=== PATIENT | male | born 1955 | race Hispanic/Latino ===

== ENCOUNTER 2022-09-24 15:34 | Inpatient (IN) | payer OTHER, BC ==
[~2022-09-24 15:34] MED LIST: Iopamidol-370 76% 500 ML 1 ML ONE
[2022-09-24] MEDS ORDERED: Boostrix 0.5 ML (Tdap) VIAL (>/=7 yrs of age) ONE (15:41)
[2022-09-24 16:04] LABS: Actual Bicarbonate (HCO3v) 21 mEq/L (22-28); Base Excess -0.9 mEq/L (-2.0 to +3.0); Calcium, Ionized (venous) 0.97 mmol/L (1.16-1.32); Chloride (VBG) 103 mmol/L (98-106); Hemoglobin (Hb) 16.3 g/dL (12.6-17.4); Potassium (VBG) 3.81 mmol/L (3.70-5.30); Sodium 132.4 mmol/L (133-146)
[2022-09-24 16:12] LABS: #Eosinphils 0.1 thou/uL (0.0-0.7); #Lymphocytes 1.5 thou/uL (1.20-3.40); #Monocytes 0.7 thou/uL (0.11-0.59); %Basophils 0.3 % (0.0-1.0); %Lymphocytes 14.6 % (21.0-51.0); %Monocytes 7.1 % (0.0-10.0); %Neutrophils 76.9 % (42.0-75.0); Hemoglobin 15.4 g/dL (14.0-18.0); Mean Corpuscular HGB CONC 34.2 g/dL (32.0-36.0); Mean Corpuscular Hemoglobin 31.8 pg (27.0-31.0); Mean Corpuscular Volume 93.1 fl (78.0-98.0); Mean Platelet Volume 7.1 fL (7.4-10.4); Platelet Count 251 10x3/uL (130-400); RBC Distribution Width 11.6 % (11.5-14.5); Red Blood Cell (RBC) Count 4.83 mill/uL (4.70-6.10); White Blood Cell (WBC) Count 10.4 10x3/uL (4.8-10.8)
[2022-09-24 16:21] LABS: INR-International Normal Ratio 0.9; PTT 24.2 sec (22.9-36.1); Prothrombin Time 12.9 sec (12.0-14.7)
[2022-09-24 16:32] LABS: Anion Gap 14 mmol/L (10-20); BUN (Urea Nitrogen) 13 mg/dL (8.4-25.7); Calc. Creatinine Clearance 0 mL/min (70-130); Carbon Dioxide 23 mmol/L (23-31); Chloride 102 mmol/L (98-107); Potassium 3.8 mmol/L (3.5-5.1); Sodium 135 mmol/L (136-145)
[2022-09-24 16:33] LABS: ALT (SGPT) 37 U/L (8-55); AST (SGOT) 25 U/L (5-34); Albumin 4.2 g/dL (3.4-4.8); Alkaline Phosphatase 101 U/L (40-110); Bilirubin, Total 0.6 mg/dL (0.2-1.2); Calcium 9.3 mg/dL (7.8-10.44); Estimated GFR 75; Globulin 2.7 g/dL (2.4-3.5); Glucose 193 mg/dL (80-115); Lipase 44 U/L (8-78); Protein, Total 6.9 g/dL (5.8-8.1)
[2022-09-24] MEDS ORDERED: Dextrose 50% Abboject 50 ML SYRINGE SLOW IVP PRN (18:40)
[2022-09-24] MEDS ORDERED: Ipratropium/Albuterol 3 ML NEB NEB PRN (18:40)
[2022-09-24] MEDS ORDERED: Morphine 2 MG/ML VIAL SLOW IVP PRN (18:40)
[2022-09-24] MEDS ORDERED: Dextrose 5% in Water 1,000 ML IV PRN (18:40)
[2022-09-24] MEDS ORDERED: Ondansetron PF 4 MG/2 ML Vial IVP PRN (18:40)
[2022-09-24] MEDS ORDERED: hydrALAZINE 20 MG/ML VIAL SLOW IVP PRN (18:55)
[2022-09-24 19:11] LABS: Lactic Acid 2.7 mmol/L (0.5-2.2)
[2022-09-24] MEDS ORDERED: Fentanyl 100 MCG/2 ML VIAL ONE (19:42)
[2022-09-24] MEDS: Sodium Chloride 0.9% 1,000 ML IV SCH (23:51)
[2022-09-24] MEDS: Acetaminophen 500 MG TAB PO SCH (23:51)
[2022-09-25] MEDS: Famotidine/PF 20 mg/2ml Vial SLOW IVP SCH ×3 (00:03→20:02)
[2022-09-25] MEDS: Acetaminophen 500 MG TAB PO SCH ×3 (01:25→13:53)
[2022-09-25 03:58] VITALS: BMI 24.6
[2022-09-25] MEDS: Sodium Chloride 0.9% 1,000 ML IV SCH ×2 (05:56→08:57)
[2022-09-25] MEDS ORDERED: Acetaminophen/Codeine 30-300mg Tablet PO PRN (14:56)
[2022-09-25] MEDS ORDERED: Scopolamine 1.5 mg/72 hour Patch TD SCH (15:00)
[2022-09-25] MEDS: Acetaminophen 325 MG TAB PO SCH (17:20)
[2022-09-25] MEDS: HumaLOG 300 UNITS/3 ML VIAL SC PRN (20:02)
[2022-09-26] MEDS: Acetaminophen 325 MG TAB PO SCH ×3 (00:47→12:24)
[2022-09-26 06:10] LABS: #Eosinphils 0.1 thou/uL (0.0-0.7); #Lymphocytes 1.3 thou/uL (1.20-3.40); #Monocytes 0.5 thou/uL (0.11-0.59); #Neutrophils 5.3 thou/uL (1.40-6.50); %Basophils 0.6 % (0.0-1.0); %Monocytes 7.3 % (0.0-10.0); %Neutrophils 72.1 % (42.0-75.0); Hemoglobin 14.2 g/dL (14.0-18.0); Mean Corpuscular HGB CONC 32.8 g/dL (32.0-36.0); Mean Corpuscular Hemoglobin 31.2 pg (27.0-31.0); Mean Platelet Volume 7.3 fL (7.4-10.4); Platelet Count 224 10x3/uL (130-400); RBC Distribution Width 11.7 % (11.5-14.5); Red Blood Cell (RBC) Count 4.55 mill/uL (4.70-6.10); White Blood Cell (WBC) Count 7.4 10x3/uL (4.8-10.8)
[2022-09-26 06:31] LABS: Anion Gap 12 mmol/L (10-20); BUN (Urea Nitrogen) 13 mg/dL (8.4-25.7); Calc. Creatinine Clearance 104 mL/min (70-130); Carbon Dioxide 23 mmol/L (23-31); Chloride 105 mmol/L (98-107); Estimated GFR 96; Glucose 160 mg/dL (80-115); Phosphorus 2.5 mg/dL (2.3-4.7); Potassium 4.1 mmol/L (3.5-5.1); Sodium 136 mmol/L (136-145)
[2022-09-26] MEDS ORDERED: Atorvastatin Calcium 10 MG TAB PO SCH (09:00)
[2022-09-26] MEDS ORDERED: Famotidine 20 MG TAB PO SCH (09:00)
[2022-09-26] MEDS ORDERED: Tamsulosin HCl 0.4 MG CAP PO SCH (09:00)
[2022-09-26 09:41] VITALS: TEMP 98.1
[2022-09-26] MEDS: HumaLOG 300 UNITS/3 ML VIAL SC PRN (12:25)
[2022-09-26 14:16] VITALS: BP 138/73
== END 2022-09-26 16:25 | disposition home or self-care (01) | DRG 87 ==
LOC: ERS 15:34 → SJJU 18:40
PROVIDERS: ADMIT Surgery; ATTEND Surgery
DX: S06.5X0A Traumatic subdural hemorrhage without loss of consciousness, initial encounter (principal); S42.021A Displaced fracture of shaft of right clavicle, initial encounter for closed fracture; R91.8 Other nonspecific abnormal finding of lung field; E78.00 Pure hypercholesterolemia, unspecified; E11.9 Type 2 diabetes mellitus without complications; S69.91XA Unspecified injury of right wrist, hand and finger(s), initial encounter; R40.2362 Coma scale, best motor response, obeys commands, at arrival to emergency department; R40.2142 Coma scale, eyes open, spontaneous, at arrival to emergency department; R40.2252 Coma scale, best verbal response, oriented, at arrival to emergency department; Z98.890 Other specified postprocedural states; Z79.899 Other long term (current) drug therapy; Z79.84 Long term (current) use of oral hypoglycemic drugs; V29.39XA Other motorcycle (driver) (passenger) injured in unspecified nontraffic accident, initial encounter
CPT/HCPCS: 36415; 36416; 70450; 71045; 71260; 72125; 74177; 80048; 80053; 82805; 83605; 83690; 83735; 84100; 84484; 85025; 85610; 85730; 90471; 90715; 93005; 96374; G0390; J1815; J2272; J2405; J3010; J7050; Q9967; S0028

== ENCOUNTER 2022-10-18 11:09 | Outpatient (CLI) | payer BC | END 2022-10-18 11:10 | disposition home or self-care (01) | LOC: BICCT 11:09 | PROVIDERS: ATTEND Physician Assistant Surgical | DX: S06.5X0D Traumatic subdural hemorrhage without loss of consciousness, subsequent encounter (principal) | CPT/HCPCS: 70450 ==